=== PATIENT | female | born 1965 | race Hispanic/Latino ===

== ENCOUNTER 2025-07-06 07:46 | Day surgery (SDC) | payer BC ==
[2025-07-05 12:13] VITALS: BP 86/53; PULSE 67; RESP 17; TEMP 98.2
[2025-07-06] VITALS (13 sets, daily range): BP systolic 96–120; BP diastolic 39–74; PULSE 57–79; RESP 13–18; TEMP 97.4–97.8
[~2025-07-06] VITALS: Ht 170.2 cm; Wt 60.2 kg
[~2025-07-06 07:46] MED LIST: ACET-66 PO; DIPH25TA22 PO; FLUT16H NASAL; RALO60TA13 PO; SUMA50TA17 PO; TOPI25CA6 PO
[2025-07-06] MEDS ORDERED: LACTATED RINGERS 1000ML 1,000 ML IV ONE (07:51)
[2025-07-06] MEDS ORDERED: LIDOCAINE HCL-MPF 1% 5ML AMP IJ ONE (09:39)
[2025-07-06] MEDS ORDERED: MIDAZOLAM HCL 1 MG/ML 2ML VIAL ONE (09:40)
[2025-07-06] MEDS ORDERED: GLYCOPYRROLATE 0.2 MG/ML 5 ML VIAL ONE (11:07)
[2025-07-06] MEDS ORDERED: NEOSTIGMINE METHYLSULFATE 1MG/ML IV ONE (11:07)
--- NOTE | 2025-07-06 11:56 | OP ---
Operative Note: DATE OF PROCEDURE: 07/06/25 SURGEON: LULI JUNIOR DPM MANAGEMENT DEPARTMENT CHAIR: None ANESTHESIA: General PREOPERATIVE DIAGNOSIS: Recurrent hammertoe deformity left 2nd digit POSTOPERATIVE DIAGNOSIS: Same Findings: Lengthening of the 2nd digit was achieved PROCEDURE: 1. Correction of hammertoe deformity with PIPJ arthrodesis 2. Hudson calcaneal bone graft left foot ESTIMATED BLOOD LOSS: Minimal INDICATIONS: Patient had arthroplasty procedure by different surgeon and suffering from deviated toe and the shortened toe and wants to have a revision surgery Injectables: 15 cc of 0.25% Marcaine plain Specimen: None Materials: 2.7 mm x 30 mm cortical screw, 3-0 Vicryl, 4-0 Vicryl, 4-0 nylon, 3- 0 nylon Hemostasis: Pneumonic thigh tourniquet at 280 mm Hg DESCRIPTION OF PROCEDURE: The patient was brought into the operating room and placed on table in a supine position and general anesthesia was induced. Time-out was called with all the staff in the room to identify the patient, procedure and procedure site. Patient's right lower extremity was prepped and draped in usual aseptic manner, exsanguinated utilizing Esmarch bandage and pneumonic thigh tourniquet was inflated at 280 mm Hg. Linear longitudinal incision was made over the 2nd digit over the old surgical scar. Incision was deepened through subcutaneous tissue layer care being taken to retract and protect remaining neurovascular structures. PIPJ was transected and scar tissue was resected enough to expose head of the remaining proximal phalanx and base of the middle phalanx. Proximally 2 mm section from each side was resected down to the healthy bleeding bone. Osteotomy was oriented to corrected deformity. The digit was deviated laterally therefore more bone was taken from medial side of the proximal phalanx. Procedure 1. Harvesting calcaneal bone graft Curvilinear incision was made posterior to the sural nerve over the calcaneal tuber. Incision was deepened through subcutaneous tissue layer. Small bleeders were coagulated. Sural nerve was never encountered. Periosteal incision was made over the calcaneal tuber which was reflected anteriorly and posteriorly. 7 mm section of bicortical bone graft was then harvested utilizing saw and osteotome from the calcaneal tuber. Cancellous bone was also harvested from the medullary canal. Procedure 2. Correction of hammertoe deformity right 2nd digit Retrograde drilling of the middle and distal phalanges were created utilizing over drilling 42.7 mm cortical screw. 1.6 mm K-wire was then inserted from distal and the of the digit through the distal phalanx, through the middle ph alanx into the bone graft which was harvested from the calcaneus into the proximal phalanx. Alignment was confirmed under fluoroscopy in multiple views. Addition of 7 mm was achieved in the 2nd digit. Bone graft was contoured to fit into the space. K-wire was then removed and replaced by 2.7 mm cortical screws inserted from the distal tip of the digit through the medullary canal from distal phalanx to proximal phalanx through the bone graft. Placement of the internal fixation was confirmed under fluoroscopy in multiple views cancellous bone was packed around the PIPJ area. The surgical wound was irrigated aggressively utilizing copious amounts of normal sterile saline with a pressure. Deep fascial layer was reapproximated utilizing 3-0 Vicryl subcutaneous tissue layer via 4-0 Vicryl and skin via 4-0 nylon. For the calcaneal incision periosteal layer was reapproximated utilizing 3-0 Vicryl subcutaneous tissue layer via 4-0 Vicryl and the skin via 3-0 nylon. The surgical wound was dressed with regular dry sterile dressing followed by compressive dressing after pneumonic thigh tourniquet was released. The patient tolerated the procedure and anesthesia well. LULI JUNIOR DPM Jul 06, 2025 11:56
--- NOTE | 2025-07-06 13:15 | NUR ---
BOTH PT AND GIVEN VERBAL AND WRITTEN DISCHARGE INSTRUCTIONS IV REMOVED SITE ASYMPTOMATIC. PT TAKEN OUT VIA WHEELCHAIR.
--- NOTE | 2025-07-07 16:47 | HMCIMG ---
FOOT COMP 3+VWS LT REASON: ORIF LEFT FOOT, ARTHRODESIS, HAMMERTOE, SX TECHNIQUE: 2 views were obtained. FINDINGS: There is ORIF the left foot for hammertoe correction.. Fluoroscopy time: 25 seconds. IMPRESSION: Status post ORIF of left foot with arthrodesis. The details of the finding in the operative report.
== END 2025-07-06 13:20 | disposition home or self-care (01) ==
LOC: DAH 07:46
PROVIDERS: ATTEND Podiatrist
DX: M20.42 Other hammer toe(s) (acquired), left foot (principal); M96.89 Other intraoperative and postprocedural complications and disorders of the musculoskeletal system; Z88.6 Allergy status to analgesic agent; Z79.899 Other long term (current) drug therapy
CPT/HCPCS: 20900; 28285; 73630; A6260; C1713; A4663; J7120; J3010 ×2; J1100 ×2; J0665 ×3; J3490 ×4; J2250; J2704; J2405 ×2; J2710; J0690; A6223; A4649 ×2; A4930 ×2; A4215; A4213; A4222; A4221; A4216; A6450; A4223 ×2